=== PATIENT | male | born 1975 | race African-American/Black ===

== ENCOUNTER 2020-10-12 15:57 | Emergency (ER) | payer MEDICARE, OTHER ==
[2020-10-12 16:00] VITALS: BP 121/68
[2020-10-12] MEDS ORDERED: ACETAMINOPHEN 325 MG TAB PO ONE (16:15)
== END 2020-10-12 20:38 | disposition left against medical advice (07) ==
LOC: EDBD 15:57 → ER 15:57
DX: R07.89 Other chest pain (principal); F15.10 Other stimulant abuse, uncomplicated; F12.10 Cannabis abuse, uncomplicated; F17.210 Nicotine dependence, cigarettes, uncomplicated; I50.9 Heart failure, unspecified; I48.91 Unspecified atrial fibrillation; Z90.89 Acquired absence of other organs; Z53.29 Procedure and treatment not carried out because of patient's decision for other reasons
CPT/HCPCS: 93005

== ENCOUNTER 2020-10-13 20:26 | Emergency (ER) | payer MEDICARE, OTHER ==
[~2020-10-13] VITALS: Ht 180.3 cm; Wt 155.1 kg
[2020-10-13 20:29] VITALS: BP 155/52
== END 2020-10-13 23:37 | disposition left against medical advice (07) ==
LOC: ER 20:31
DX: R07.9 Chest pain, unspecified (principal); R22.43 Localized swelling, mass and lump, lower limb, bilateral; Z53.21 Procedure and treatment not carried out due to patient leaving prior to being seen by health care provider
CPT/HCPCS: 71045; 93005